=== PATIENT | female | born 1935 | race Caucasian/White ===

== ENCOUNTER → 2017-02-09 | Outpatient (CLI) | payer MEDICARE, BC ==
[~2017-02-09] MED LIST: AGGRENOX1 CAP PO; ALLEGRA; ALLOPURINOL300 MG PO; ALPRAZOLAM PO; AMLODIPINE BESYL5 MG PO; ASPIRIN EC81 M1 PO; ASPIRIN PO; ASPIRIN81 MG PO; BP MED; BYSTOLIC5 MG PO; CARVEDILOL3.125 MG PO; CELEBREX; CELEBREX PO; CELEBREX100 MG PO; CLOPIDOGREL BIS75 MG PO; CLOPIDOGREL75 MG PO; DARVOCET-N 1001 TAB; DIOVAN HCT 160-1 TAB PO; DIOVAN320 MG PO; FLEXERIL PO; GOUT MED; HYDRALAZINE HCL50 MG PO; IMDUR-ER30 M1 PO; ISOSORBIDE DINI30 MG PO; K-DUR10 MEQ PO; LASIX20 MG PO; LEVAQUIN750 MG PO; LIPITOR20 MG PO; METOPROLOL TAR25 MG PO; MOBIC PO; MOTRIN400 M1 PO; MULTI-VITAMIN1 EAC1 PO; MULTIVITAMINS1 EAC4 PO; NEXIUM; NO MED LIST; PRAVACHOL PO; PROTONIX PO; REGLAN; TRAMADOL HCL50 M1 PO; TRAMADOL HCL50 M2 PO; TYLENOL #3 PO; URSO FORTE PO; URSODIOL500 MG PO; VICODIN 5/500 T1 TAB PO; VITAMIN B INJ INJ; ZESTORETIC 20/11 TAB PO; ZYLOPRIM PO
--- NOTE | ~2017-02-09 | CR63 ---
[facility] A Service of [facility] & [facility] RADIOLOGY TEXT RESULTS PATIENT: KHOA HERNANDES LOCATION: [facility] : 37 UNIT #: [id number] AGE: [address]: Jose Mccoy MD SEX: F ORDER DR: [id number] [facility] [address] [place], [place] [address] [id number] O MR#: [id number] Acc #: [id number] NAME: KHOA HERNANDES : 1935 SEX: F STUDY DATE/TIME: 02/09/2017 12:04 UNIT: [facility] ROOM: STUDY DESCRIPTION: CR Chest 2 View Attending Physician: Jose Mccoy M.D. Referring Physician: Jose Mccoy M.D. Ordering Physician: Jose Mccoy M.D. Primary Care Physician: Shakira Mora M.D. MEDICAL IMAGING REPORT This report is preliminary unless electronic signature is present EXAM Chest 2 views 02/09/2017 INDICATIONS 81-year-old female presenting for preop evaluation for left knee surgery. Symptoms began today. History of skin cancer. 2 view chest was performed. COMPARISON 09/12/2016 FINDINGS Cardiac silhouette borderline in size and stable. The vascularity is within normal limits. There is no dense consolidation, effusion or pneumothorax. There are calcified granulomas present. Epigastric postoperative changes present. IMPRESSION Negative chest. Postop changes as described. Dictated by... Shabbir Marcos M.D. THIS IS AN ELECTRONICALLY VERIFIED REPORT Shabbir Marcos M.D. at 02/09/2017 10:46 PM Elyssa TD: 02/09/2017 16:41 JOB #: [id number] MEDICAL IMAGING REPORT Page 1 of 1 COPY
--- NOTE | ~2017-02-09 | CO ---
Unit #: [id number] #: [id number] Patient: KHOA HERNANDES [id number] [address] [address] [id number] O MR#: [id number] NAME: KHOA HERNANDES ROOM: Age: 81 Sex: F Admission Date: 02/09/2017 : 1935 Attending Physician: Jose Mccoy M.D. Primary Care Physician: Shakira Mora M.D. Consultation Date: 02/09/2017 CONSULTATION REPORT REASON FOR CONSULTATION Preoperative medical evaluation prior to left total knee revision scheduled by Dr. Mccoy for 02/16/17. HISTORY OF PRESENT ILLNESS The patient is a 81-year-old female who presents to preprocedural screening for the reasons indicated above. She reports pain in the left knee at the time of this interview but has no other complaints at this time. She denies chest pain, arm, neck or jaw pain or pressure, denies shortness of air or dyspnea on exertion, PND, orthopnea or known history of sleep apnea. She denies lightheadedness, dizziness, presyncope, syncope, palpitations. She has been evaluated by Dr. Griselda Hendricks and has a note of preoperative cardiac clearance with her medical records today. She has been evaluated by Dr. Mccoy and scheduled for the above-referenced procedure. PAST MEDICAL HISTORY 1. Osteoarthritis. 2. Gout. 3. Hypertension. 4. TIA. 5. Mitral regurgitation. 6. Known cardiac murmur. 7. CHF. 8. History of acute diastolic CHF. 9. Coronary artery disease, status post right and left heart catheterization April of 2016 at this facility per Dr. Cook which revealed LVEF greater than 65%, moderate aortic stenosis, mild aortic regurgitation, mid LAD 90% with distal vessel bypassable, severe pulmonary hypertension. 10. Hypertension. 11. GERD. 12. Cirrhosis. 13. Transaminitis. 14. Anemia with unknown etiology. 15. Chronic back pain. 16. History of skin cancer. 17. Anxiety. PAST SURGICAL HISTORY 1. Gastric bypass surgery. 2. Cholecystectomy. 3. Abdominal hernia repair x2. Unit #: [id number] #: [id number] Patient: KHOA HERNANDES 4. Right total knee arthroplasty. 5. Hysterectomy. 6. Left total knee arthroplasty. 7. Cataract surgery with lens implant both eyes. 8. Hemorrhoidectomy. 9. Left carpal tunnel release. 10. Cardiac cath procedure 05/23/16 at [facility] with results as dictated above. Please refer to complete report. ANESTHESIA Patient denies a personal and family history of complications to anesthesia. ALLERGIES Denies latex allergy. Allergic to oxycodone and acetaminophen with unknown reaction. CURRENT MEDICATIONS 1. Allopurinol 300 mg p.o. daily. 2. Aspirin EC 81 mg p.o. daily. 3. Bystolic 5 mg p.o. daily. 4. Clopidogrel bisulfate 75 mg p.o. daily. 5. Lasix 20 mg p.o. daily. 6. Hydralazine HCl 50 mg p.o. daily. 7. Isosorbide dinitrate 30 mg p.o. daily. 8. Multivitamin one p.o. daily. 9. Tramadol 50 mg p.o. b.i.d. 10. Ursodiol 500 mg p.o. b.i.d. SOCIAL HISTORY Denies tobacco use, ETOH use and illicit drug use. FAMILY HISTORY Per review of Dr. Mccoy's office note diabetes, hypertension, hyperlipidemia, stroke and cancer. REVIEW OF SYSTEMS Patient denies fever, chills, nausea, vomiting, diarrhea, melena, hematochezia, dark tarry stools or bright red blood per rectum. Her last colonoscopy was three to four years ago with negative results per patient report. 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 She has cirrhosis of unknown etiology. 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 A 10-point review of systems was conducted and otherwise negative except as indicated under history of present illness above. PHYSICAL EXAMINATION GENERAL APPEARANCE: A 81-year-old female, awake, alert, in no acute distress. VITAL SIGNS: Temperature 98.4. Heart rate 64. Respiratory rate 16. Blood pressure 134/64. Oxygen saturation 96% on room air. HEENT: Normocephalic and atraumatic. Sclerae anicteric. No discharge from eyes, ears or nares. LYMPHATIC: No preauricular, postauricular, tonsillar, submental anterior or posterior cervical, supra or infraclavicular adenopathy. ENDOCRINE: No thyromegaly, thyroid nodules or tenderness. RESPIRATORY: Clear to auscultation in all mckeon bilaterally without Unit #: [id number] #: [id number] Patient: HERNANDES,KHOA wheezes, rhonchi or rales. CARDIOVASCULAR: S1 and S2, regular rate and rhythm. A grade 2-3/6 systolic murmur heard over the entire precordium without rub. GASTROINTESTINAL: Bowel sounds positive x4, soft, nontender, nondistended. EXTREMITIES: Bilateral lower extremity edema, 3+, without cyanosis or clubbing. MUSCULOSKELETAL: Strength 5/5 all extremities bilaterally flexion and extension. NEUROLOGIC: Alert and oriented x3. Speech clear. Follows commands. DIAGNOSTIC STUDIES LABORATORY: WBC 4.7, hemoglobin 10.5, hematocrit 33.9, platelet count 133,000 and sedimentation rate 43, CRP 1.0. Urinalysis leukocyte esterase trace, nitrite positive, protein negative, glucose negative, bacteria 4+, (1) 2 to 5. Sodium 141, potassium 4.0, chloride 103, CO2 31, glucose 116, BUN 22, creatinine 0.8, calcium 9.1, AST 43, ALT 23, alkaline phosphatase 170, total bilirubin 0.8, total protein 6.8, albumin 3.0. Blood type A positive, antibody screen negative. PT 12.2, INR 1.2. MRSA nasal swab report pending at this time. Urine culture and sensitivity pending at this time. IMAGING: Two-view chest x-ray report pending at this time. CARDIOVASCULAR: Twelve-lead EKG from 09/12/16 normal sinus rhythm with premature atrial complexes, right bundle branch block, left anterior fascicular block, bifascicular block. Abnormal ECG when compared with the ECG of 11/05/2015; left anterior fascicular block is now present. Confirmed report by Dr. Cook. IMPRESSION The patient is a 81-year-old female who presents to preprocedural screening for: 1. Preoperative medical evaluation prior to left total knee revision scheduled by Dr. Mccoy for 02/16/17. The patient's Wills Revised Cardiac Risk Index is approximately equal to 2.4% to 5.4% based on information available today. The patient's risk is increased secondary to history of congestive heart failure and transient ischemic attack. This represents the patient's perioperative risk of cardiopulmonary arrest, cardiac , fatal or nonfatal myocardial infarction, cardiac arrhythmia and/or pulmonary edema. This has been discussed in detail with the patient and she wishes to proceed with surgery as scheduled at this time. Please note this patient has been evaluated by and received preoperative cardiac clearance by Dr. Hendricks. Dr. Hendricks's note states that "patient is cleared for surgery at acceptable cardiac risk." 2. Gout: Continue allopurinol. 3. Hypertension: Blood pressure stable. Continue current medications and monitor blood pressure perioperatively and dose medications accordingly. 4. History of transient ischemic attack: Continue Plavix and low dose aspirin unless advised otherwise by Dr. Mccoy. 5. History of mitral regurgitation. 6. History of known cardiac murmur. 7. History of diastolic congestive heart failure. 8. The patient is stable from a cardiac standpoint at this time. 9. Hypertension, blood pressure stable. 10. Gastroesophageal reflux disease: Elevate head of bed 30 to 45 Unit #: [id number] #: [id number] Patient: KHOA HERNANDES degrees and consider proton pump inhibitor postoperatively. 11. Cirrhosis of unknown etiology. The patient is established with Dr. Salazar. 12. History of transaminitis. 13. History of anemia. Patient is unclear regarding history of anemia. Anemia is microcytic today. She does not take an iron supplement, only a multivitamin daily. She is established with Dr. Mora as her primary care physician. Patient denies vaginal bleeding as well as GI on review of systems. Patient has been advised to see her primary care physician, Dr. Mora, for preoperative cardiac clearance for anemia of unknown etiology. Patient and daughter verbalized understanding of this information. The patient is going to call today to schedule her own appointment. 14. History of chronic back pain, status post epidurals. 15. History of skin cancer. 16. Probable urinary tract infection. Urine culture and sensitivities pending at this time. I have given the patient prescription for Keflex 500 mg tab one p.o. q.6 h. x7 days #28 no refills, Written an order for the UA to be rechecked via straight cath the a.m. of surgery. Again urine culture and sensitivity is pending at this time. Thank you for allowing us to participate in the care of this patient. We will gladly follow her for postop medical management pending order of Dr. Mccoy and PCP clearance for anemia of unknown etiology. Dictated by... Anca Bullard A.P.R.N. for Mike Reynolds/rell TD: 02/09/2017 15:30 JOB #: [id number] CONSULTATION REPORT Page 1 of 1 X Anca Bullard APRN X CONSULTATION REPORT
[2017-02-09 11:12] LABS: HEMATOCRIT 33.9 % (35.0-45.0); HEMOGLOBIN 10.5 gm/dL (12.0-16.0); MEAN CELL VOLUME 74.6 FL (83-96); MEAN CORPUSCULAR HEMOGLOBIN 23.1 PG (28-34); MEAN PLATELET VOLUME 8.3 FL (6.5-11.5); RED BLOOD COUNT 4.55 X10e (3.90-5.30); RED CELL DISTRIBUTION WIDTH 21.4 % (11.0-15.5); WHITE BLOOD COUNT 4.7 X10e3 (4.0-10.5)
[2017-02-09 11:25] LABS: INR 1.2; PROTHROMBIN TIME (PATIENT) 12.2 SECONDS (9.6-11.5)
[2017-02-09 11:54] LABS: BILIRUBIN,TOTAL 0.8 mg/dL (0.2-2.0); BUN/CREATININE RATIO 27.5; CALCIUM SERUM 9.1 mg/dL (8.4-10.2); CREATININE SERUM 0.8 mg/dL (0.6-1.4); GLOM FILT RATE Estimated 70.2 mL/min (>60); PROTEIN TOTAL SERUM 6.8 g/dL (6.0-8.3)
[2017-02-09 12:28] LABS: URINE APPEARANCE CLEAR; URINE BILIRUBIN NEG (NEG); URINE BLOOD NEG (NEG); URINE COLOR DK YELLOW; URINE GLUCOSE NEG (NEG); URINE KETONE NEG (NEG); URINE LEUKOCYTE ESTERASE TRACE (NEG); URINE NITRATE POS (NEG); URINE PH 5.5 (5-8); URINE PROTEIN NEG (NEG); URINE SPECIFIC GRAVITY 1.026 (1.003-1.035)
[2017-02-09 12:32] LABS: CULTURE INDICATED? YES; URBCS1 AUWI 0-2 /[HPF] (0-2); URINE BACTERIA AUWI 4+ (NEGATIVE); URINE SQUAMOUS EPITHELIAL CELL OCC /[HPF]
== END | disposition home or self-care (01) ==
LOC: CAMB 10:26
PROVIDERS: Orthopaedic Surgery
DX: Z01.818 Encounter for other preprocedural examination (principal); T84.093A Other mechanical complication of internal left knee prosthesis, initial encounter; Z98.890 Other specified postprocedural states
CPT/HCPCS: 36415; 71020; 80053; 81003; 85027; 85610; 85652; 86140; 86850; 86900; 86901; 87070; 87086; 87186

== ENCOUNTER → 2017-04-27 | Outpatient (CLI) | payer MEDICARE, BC ==
[2017-04-27 14:46] LABS: URINE APPEARANCE CLEAR; URINE BILIRUBIN NEG (NEG); URINE BLOOD NEG (NEG); URINE COLOR YELLOW; URINE GLUCOSE NEG (NEG); URINE KETONE NEG (NEG); URINE LEUKOCYTE ESTERASE NEG (NEG); URINE NITRATE NEG (NEG); URINE PH 6.5 (5-8); URINE PROTEIN NEG (NEG)
[2017-04-27 14:51] LABS: HEMATOCRIT 37.9 % (35.0-45.0); MEAN CORPUSCULAR HEMOGLOBIN 26.9 PG (28-34); MEAN CORPUSCULAR HGB CONC 31.7 g/dL (30-36); MEAN PLATELET VOLUME 8.8 FL (6.5-11.5); RED BLOOD COUNT 4.45 X10e (3.90-5.30); RED CELL DISTRIBUTION WIDTH 19.2 % (11.0-15.5); WHITE BLOOD COUNT 4.1 X10e3 (4.0-10.5)
[2017-04-27 14:53] LABS: CULTURE INDICATED? NO; URINE SOURCE CLEAN CATCH
[2017-04-27 15:07] LABS: INR 1.1; PROTHROMBIN TIME (PATIENT) 11.7 SECONDS (10.0-11.7)
[2017-04-27 15:14] LABS: ALBUMIN SERUM 3.2 g/dL (3.5-5.0); BILIRUBIN,TOTAL 0.8 mg/dL (0.2-2.0); BUN/CREATININE RATIO 26.66; CALCIUM SERUM 9.1 mg/dL (8.4-10.2); CREATININE SERUM 0.6 mg/dL (0.6-1.4); GLOM FILT RATE Estimated 86.7 mL/min (>60); POTASSIUM 3.7 mmol/L (3.5-5.1); PROTEIN TOTAL SERUM 7.3 g/dL (6.0-8.3)
== END | disposition home or self-care (01) ==
LOC: CAMB 13:52
PROVIDERS: Orthopaedic Surgery
DX: Z01.818 Encounter for other preprocedural examination (principal); T84.023A Instability of internal left knee prosthesis, initial encounter; I10 Essential (primary) hypertension; K21.9 Gastro-esophageal reflux disease without esophagitis
CPT/HCPCS: 36415; 80053; 81003; 85027; 85610; 85652; 86140; 86850; 86900; 86901; 87070

== ENCOUNTER → 2017-06-08 | Outpatient (CLI) | payer MEDICARE, BC ==
--- NOTE | ~2017-06-08 | CO ---
Unit #: [id number] #: [id number] Patient: KHOA BANERJEE [id number] [address] [address] [id number] O MR#: [id number] NAME: KHOA BANERJEE ROOM: Age: 81 Sex: F Admission Date: 06/08/2017 : 1935 Attending Physician: Jose Mccoy M.D. Primary Care Physician: Shakira Mora M.D. CONSULTATION REPORT REVISED/ADDENDED REPORT REASON FOR CONSULTATION Preoperative medical evaluation prior to left total knee revision scheduled by Dr. Mccoy for 02/16/17. HISTORY OF PRESENT ILLNESS The patient is a 81-year-old female who presents to preprocedural screening for the reasons indicated above. She reports pain in the left knee at the time of this interview but has no other complaints at this time. She denies chest pain, arm, neck or jaw pain or pressure, denies shortness of air or dyspnea on exertion, PND, orthopnea or known history of sleep apnea. She denies lightheadedness, dizziness, presyncope, syncope, palpitations. She has been evaluated by Dr. Griselda Hendricks and has a note of preoperative cardiac clearance with her medical records today. She has been evaluated by Dr. Mccoy and scheduled for the above-referenced procedure. PAST MEDICAL HISTORY 1. Osteoarthritis. 2. Gout. 3. Hypertension. 4. TIA. 5. Mitral regurgitation. 6. Known cardiac murmur. 7. CHF. 8. History of acute diastolic CHF. 9. Coronary artery disease, status post right and left heart catheterization April of 2016 [address] this facility per [address]. Cook which revealed LVEF greater than 65%, moderate aortic stenosis, mild aortic regurgitation, mid LAD 90% with distal vessel bypassable, severe pulmonary hypertension. 10. Hypertension. 11. GERD. 12. Cirrhosis. 13. Transaminitis. 14. Anemia with unknown etiology. 15. Chronic back pain. 16. History of skin cancer. 17. Anxiety. PAST SURGICAL HISTORY 1. Gastric bypass surgery. Unit #: [id number] #: [id number] Patient: KHOA BANERJEE 2. Cholecystectomy. 3. Abdominal hernia repair x2. 4. Right total knee arthroplasty. 5. Hysterectomy. 6. Left total knee arthroplasty. 7. Cataract surgery with lens implant both eyes. 8. Hemorrhoidectomy. 9. Left carpal tunnel release. 10. Cardiac cath procedure 05/23/16 at [facility] with results as dictated above. Please refer to complete report. ANESTHESIA Patient denies a personal and family history of complications to anesthesia. ALLERGIES Denies latex allergy. Allergic to oxycodone and acetaminophen with unknown reaction. CURRENT MEDICATIONS 1. Allopurinol 300 mg p.o. daily. 2. Aspirin EC 81 mg p.o. daily. 3. Bystolic 5 mg p.o. daily. 4. Clopidogrel bisulfate 75 mg p.o. daily. 5. Lasix 20 mg p.o. daily. 6. Hydralazine HCl 50 mg p.o. daily. 7. Isosorbide dinitrate 30 mg p.o. daily. 8. Multivitamin one p.o. daily. 9. Tramadol 50 mg p.o. b.i.d. 10. Ursodiol 500 mg p.o. b.i.d. SOCIAL HISTORY Denies tobacco use, ETOH use and illicit drug use. FAMILY HISTORY Per review of Dr. Mccoy's office note diabetes, hypertension, hyperlipidemia, stroke and cancer. REVIEW OF SYSTEMS Patient denies fever, chills, nausea, vomiting, diarrhea, melena, hematochezia, dark tarry stools or bright red blood per rectum. Her last colonoscopy was three to four years ago with negative results per patient report. 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 She has cirrhosis of unknown etiology. 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 A 10-point review of systems was conducted and otherwise negative except as indicated under history of present illness above. PHYSICAL EXAMINATION GENERAL APPEARANCE: A 81-year-old female, awake, alert, in no acute distress. VITAL SIGNS: Temperature 98.4. Heart rate 64. Respiratory rate 16. Blood pressure 134/64. Oxygen saturation 96% on room air. HEENT: Normocephalic and atraumatic. Sclerae anicteric. No discharge from eyes, ears or nares. LYMPHATIC: No preauricular, postauricular, tonsillar, submental anterior or posterior cervical, supra or infraclavicular adenopathy. ENDOCRINE: No Unit #: [id number] #: [id number] Patient: KHOA BANERJEE thyromegaly, thyroid nodules or tenderness. RESPIRATORY: Clear to auscultation in all mckeon bilaterally without wheezes, rhonchi or rales. CARDIOVASCULAR: S1 and S2, regular rate and rhythm. A grade 2-3/6 systolic murmur heard over the entire precordium without rub. GASTROINTESTINAL: Bowel sounds positive x4, soft, nontender, nondistended. EXTREMITIES: Bilateral lower extremity edema, 3+, without cyanosis or clubbing. MUSCULOSKELETAL: Strength 5/5 all extremities bilaterally flexion and extension. NEUROLOGIC: Alert and oriented x3. Speech clear. Follows commands. DIAGNOSTIC STUDIES LABORATORY: WBC 4.7, hemoglobin 10.5, hematocrit 33.9, platelet count 133,000 and sedimentation rate 43, CRP 1.0. Urinalysis leukocyte esterase trace, nitrite positive, protein negative, glucose negative, bacteria 4+, (1) 2 to 5. Sodium 141, potassium 4.0, chloride 103, CO2 31, glucose 116, BUN 22, creatinine 0.8, calcium 9.1, AST 43, ALT 23, alkaline phosphatase 170, total bilirubin 0.8, total protein 6.8, albumin 3.0. Blood type A positive, antibody screen negative. PT 12.2, INR 1.2. MRSA nasal swab report pending at this time. Urine culture and sensitivity pending at this time. IMAGING: Two-view chest x-ray report pending at this time. CARDIOVASCULAR: Twelve-lead EKG from 09/12/16 normal sinus rhythm with premature atrial complexes, right bundle branch block, left anterior fascicular block, bifascicular block. Abnormal ECG when compared with the ECG of 11/05/2015; left anterior fascicular block is now present. Confirmed report by Dr. Cook. IMPRESSION The patient is a 81-year-old female who presents to preprocedural screening for: 1. Preoperative medical evaluation prior to left total knee revision scheduled by Dr. Mccoy for 02/16/17. The patient's Wills Revised Cardiac Risk Index is approximately equal to 2.4% to 5.4% based on information available today. The patient's risk is increased secondary to history of congestive heart failure and transient ischemic attack. This represents the patient's perioperative risk of cardiopulmonary arrest, cardiac , fatal or nonfatal myocardial infarction, cardiac arrhythmia and/or pulmonary edema. This has been discussed in detail with the patient and she wishes to proceed with surgery as scheduled at this time. Please note this patient has been evaluated by and received preoperative cardiac clearance by Dr. Hendricks. Dr. Hendricks's note states that "patient is cleared for surgery at acceptable cardiac risk." 2. Gout: Continue allopurinol. 3. Hypertension: Blood pressure stable. Continue current medications and monitor blood pressure perioperatively and dose medications accordingly. 4. History of transient ischemic attack: Continue Plavix and low dose aspirin unless advised otherwise by Dr. Mccoy. 5. History of mitral regurgitation. 6. History of known cardiac murmur. 7. History of diastolic congestive heart failure. 8. The patient is stable from a cardiac standpoint at this time. 9. Hypertension, blood pressure stable. Unit #: [id number] #: [id number] Patient: KHOA BANERJEE 10. Gastroesophageal reflux disease: Elevate head of bed 30 to 45 degrees and consider proton pump inhibitor postoperatively. 11. Cirrhosis of unknown etiology. The patient is established with Dr. Salazar. 12. History of transaminitis. 13. History of anemia. Patient is unclear regarding history of anemia. Anemia is microcytic today. She does not take an iron supplement, only a multivitamin daily. She is established with Dr. Mora as her primary care physician. Patient denies vaginal bleeding as well as GI on review of systems. Patient has been advised to see her primary care physician, Dr. Mora, for preoperative cardiac clearance for anemia of unknown etiology. Patient and daughter verbalized understanding of this information. The patient is going to call today to schedule her own appointment. 14. History of chronic back pain, status post epidurals. 15. History of skin cancer. 16. Probable urinary tract infection. Urine culture and sensitivities pending at this time. I have given the patient prescription for Keflex 500 mg tab one p.o. q.6 h. x7 days #28 no refills, Written an order for the UA to be rechecked via straight cath the a.m. of surgery. Again urine culture and sensitivity is pending at this time. Thank you for allowing us to participate in the care of this patient. We will gladly follow her for postop medical management pending order of Dr. Mccoy and PCP clearance for anemia of unknown etiology. Job [id number] ADDENDUM Ms. 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 Patient states that she has been taking iron supplementation to assist with anemia. She completed the course of Keflex for seven days. She continues to have some wounds which have scabbed over with mild erythema and chronic bilateral lower extremity edema, left greater than right, today. Patient has had no other change in her medical history. DIAGNOSTIC STUDIES LABORATORY: Today WBC 3.8, hemoglobin 13.1, hematocrit 39.7, platelets 100,000. Sed rate 41,000. C-reactive protein 3. Sodium 139, potassium 3.9, chloride 101, CO2 of 31, glucose 107, BUN 18, creatinine 0.8, calcium 9. AST 77, ALT 49, alkaline phosphatase 209, bilirubin total 1, total protein 6.8, albumin 3. PT 11.6, INR 1.1. Blood type A positive. Antibody screen negative. Urinalysis: Negative with urine culture and sensitivity not indicated. The patient has been evaluated also by Isabelle Packer RN, who works with Dr. Mccoy's office today. The patient has given consent to have left lower extremity photographed and these photographs have been sent to Dr. Mccoy for further review prior to surgery. The patient is cleared from a general medical standpoint for this upcoming surgery pending recommendations of Dr. Mccoy based on his evaluation of left lower extremity wounds. This has been explained to the patient in the presence Unit #: [id number] #: [id number] Patient: KHOA BANERJEE of the daughter. Someone from Dr. Mccoy's office will need to contact the patient to inform her of Dr. Mccoy's ultimate decision regarding left total knee arthroplasty revision. Dictated by... Anca Bullard A.P.R.N. for Sana Prado M.D. JENNIFER/zelda TD: 06/08/2017 16:25 JOB #: [id number] Alida Anthony CONSULTATION REPORT Page 1 of 1 X Anca Bullard APRN CONSULTATION REPORT
--- NOTE | ~2017-06-08 | EKG ---
PATIENT: KHOA HERNANDES UNIT #: [id number] Ventricular Rate: 81 BPM Atrial Rate: 81 BPM P-R Interval: 196 ms QRS Duration: 124 ms Q-T Interval: 460 ms QTC Calculation(Bezet): 534 ms Calculated R [place]: -105 degrees Calculated T [place]: -8 degrees Diagnosis Line: Normal sinus rhythm Diagnosis Line: Right bundle branch block Diagnosis Line: Abnormal ECG Diagnosis Line: When compared with ECG of 12-SEP-2016 11:03, Diagnosis Line: Premature atrial complexes are no longer Present Diagnosis Line: QT has lengthened Diagnosis Line: Confirmed by RIANA HDZ MD ([id number]) on 06/08/2017 Diagnosis Line: 6:33:00 PM INTERPRETING MD: WILDER DEAN
[2017-06-08 12:27] LABS: URINE APPEARANCE CLEAR; URINE BILIRUBIN NEG (NEG); URINE BLOOD NEG (NEG); URINE COLOR DK YELLOW; URINE GLUCOSE NEG (NEG); URINE KETONE NEG (NEG); URINE LEUKOCYTE ESTERASE TRACE (NEG); URINE NITRATE NEG (NEG); URINE PH 5.5 (5-8); URINE PROTEIN NEG (NEG); URINE SPECIFIC GRAVITY 1.019 (1.003-1.035)
[2017-06-08 12:31] LABS: HEMATOCRIT 39.7 % (35.0-45.0); HEMOGLOBIN 13.1 gm/dL (12.0-16.0); MEAN CELL VOLUME 85.6 FL (83-96); MEAN CORPUSCULAR HEMOGLOBIN 28.4 PG (28-34); MEAN CORPUSCULAR HGB CONC 33.1 g/dL (30-36); RED BLOOD COUNT 4.63 X10e (3.90-5.30); WHITE BLOOD COUNT 3.8 X10e3 (4.0-10.5)
[2017-06-08 12:32] LABS: U HYALINE CASTS AUWI 0-2 /[LPF]; URBCS1 AUWI 0-2 /[HPF] (0-2); URINE BACTERIA AUWI NEG (NEGATIVE); URINE SQUAMOUS EPITHELIAL CELL NONE SEEN /[HPF]; UWBCS1 AUWI 0-2 (0-5)
[2017-06-08 12:37] LABS: CULTURE INDICATED? NO
[2017-06-08 12:40] LABS: INR 1.1; PROTHROMBIN TIME (PATIENT) 11.6 SECONDS (10.0-11.7)
[2017-06-08 12:55] LABS: URINE SOURCE CLEAN CATCH
[2017-06-08 13:08] LABS: BUN/CREATININE RATIO 22.5; CREATININE SERUM 0.8 mg/dL (0.6-1.4); GLOM FILT RATE Estimated 70.2 mL/min (>60); POTASSIUM 3.9 mmol/L (3.5-5.1); PROTEIN TOTAL SERUM 6.8 g/dL (6.0-8.3)
== END | disposition home or self-care (01) ==
LOC: CAMB 11:42
PROVIDERS: Orthopaedic Surgery
DX: Z01.818 Encounter for other preprocedural examination (principal); M25.562 Pain in left knee; M23.52 Chronic instability of knee, left knee
CPT/HCPCS: 36415; 80053; 81003; 85027; 85610; 85652; 86140; 86850; 86900; 86901; 87070; 93005